=== PATIENT | female | born 1955 | race Caucasian/White ===

== ENCOUNTER 2016-11-05 11:48 | Day surgery (SDC) | payer OTHER ==
[2016-11-05] VITALS (8 sets, daily range): BP systolic 116–146; BP diastolic 60–93; PULSE 60–75; RESP 9–20; O2SAT 93–98
[~2016-11-05] VITALS: Ht 162.6 cm; Wt 63.0 kg
[~2016-11-05 11:48] MED LIST: CeFAZolin 2 Gm/50 mL D5W IV Premix IV ONE; HYDR-4003 PO
[2016-11-05] MEDS ORDERED: Lidocaine PF 1% 30 mL Inj ONE (11:49)
[2016-11-05] MEDS ORDERED: Dexamethasone 4 mg/mL Inj ONE (11:49)
[2016-11-05] MEDS ORDERED: Ondansetron 2 mg/mL 2 mL Inj ONE (11:49)
[2016-11-05] MEDS ORDERED: Ketamine 10 mg/mL 20 mL Inj ONE (11:49)
[2016-11-05] MEDS ORDERED: HYDROmorphone 2 mg/mL Inj ONE (11:49)
[2016-11-05] MEDS ORDERED: Propofol 10,000 mCg/mL 20 mL Inj ONE (11:49)
[2016-11-05] MEDS ORDERED: Lactated Ringer's 1,000 ML IV ONE (12:45)
[2016-11-05] MEDS ORDERED: Bupivacaine-MPF 0.5% 30 mL Inj INFILTRATE ONE (14:11)
[2016-11-05] MEDS ORDERED: Lactated Ringer's 500 ML IV PRN (14:43)
[2016-11-05] MEDS ORDERED: Lactated Ringer's 1,000 ML IV SCH (14:43)
--- NOTE | 2016-11-05 14:43 | PCM.HPANE ---
Patient Data Surgeon Admitting Provider: Attending Provider:Donavan Edwards MD Primary Care Physician:Anjelica Neal ARNP Other Provider:Khanh Warner Anesthesia Reason for Visit Right Distal Radius Fracture Ht/WT & BMI Height (Feet): 5 Height (Inches): 4.00 Weight (Kilograms): 63.049 Body Mass Index 23.00 Allergies Coded Allergies: codeine (Verified Adverse Reaction, Intermediate, Nausea, 11/05/16) Past Anesthesia History Anesthesia History: Denies:: Anesthesia Reactions, Malignant Hyperthermia Diabetes History Hx Diabetes?: No MRSA MRSA: No Medications Hypertension Medication: No Home Meds Incl Beta Gurjit: No Reported Medications Hydrocodone-Acetaminophen 5-325 mg 1 Each Tablet1 Tablet PO Q4H PRN For Pain Ref 0 11/01/16 History History of ENT Problems?: No Other HEENT Pertinent History: S/P WISDOM TEETH EXTRACTIONS Hx of Heart Problems?: No Cardiovascular History: Denies:: Heart Murmur Hypertension Hx of Respiratory Problem?: No Respiratory History: Denies:: Use of C-PAP Machine Hx Neurologic Problems?: No Hx of GI Problems?: No Hx of Problems?: No Female Hx: Denies:: Currently Skin History: Denies:: History Skin Disorders? Pressure Ulcers Hx Musculoskeletal Problems?: Yes Musculoskeletal History: Positive for:: Musculoskeletal Trauma (FALL ON ICE- RT DISTAL RADIUS FX=CURRENT PROBLEM S/P CLAVICLE RPR) Denies:: Osteoarthritis (OSTEOPENIA) Hx of Psycho/Social Problems?: No Hx Surgeries?: Yes (CLAVICLE RPR) Hx Any Other Health Problems?: Yes Other History: Denies:: Cancer Endocrine Disease Hospitalization Thyroid Disease History Blood Transfusions: Denies:: Blood Transfusions Hx Diabetes: No Hx Alcohol Use: YesAlcoholic Drinks Per Day: 1-2/DAYHx Substance Use: NoHave You Smoked inLast 12 mo: No Stop/Bang S-Snoring: Do You Snore Loudly: No T-Tired: feel tired, fatigued: No O-Obsered: Observed not breath: No P-Blood Pressure: treated: No B- Body Mass Index > 35 kg/m2: No A- Age over 50: Yes N- Neck Large Circumference: No G- Gender Male: No JANNA Total Score: 1 JANNA Risk Assessment: Low Risk, <3 Yes Risk Assessment Category Category 1A: Patient has history of documented sleep apnea, and HAS NOT received any narcotic, sedative or anesthesia administration during this stay. Category 1B: Patient has history of documented sleep apnea, and HAS received any narcotic , sedative or anesthesia administration during this stay Category 2: Patient has SUSPECTED Obstructive Sleep Apnea, and HAS received any narcotic , sedative or anesthesia administration during this stay. Category 3: Patient has SUSPECTED Obstructive Sleep Apnea and HAS NOT received narcotic, sedative or anesthesia administration during this stay. Category 4: Outpatient in Procedural Areas with known sleep apnea or who screen positive for High Risk via the STOP/BANG questionnaire. Exam Exam Vital Signs Vital Signs Date Time Temp Pulse Resp B/P Pulse Ox O2 Delivery O2 Flow Rate FiO2 11/05/16 12:25 36.6 60 14 146/93 96 Room Air General Appearance: Alert, Oriented X3 HEENT/AIRWAY: MP 1 Lungs: Clear to Auscultation Heart: Exam Unremarkable Meds/Labs/Diagnostics Admission Meds Current Medications Cefazolin Sodium/ Dextrose 2 gm/ Premix 50 ml @ 100 mls/hr PREOP ONCE IV Last administered on 11/05/16 13:42; Start 11/05/16 at 06:00; Stop 11/05/16 at 06: 29; Status DC Lactated Ringer's (Lr) 1,000 ml @ ud STK-MED ONCE IV Last administered on 12:45; Start 11/05/16 at 12:45; Stop 11/05/16 at 12:46; Status DC Bupivacaine HCl (Sensorcaine-MPF 0.5% Inj) 30 ml STK-MED ONCE INFILTRATE Last administered on 11/05/16 14:11; Start 11/05/16 at 14:11; Stop 11/05/16 at 14:13; Status DC Plan Impression Patient chart reviewed, patient interviewed and anesthestic plan with risks, benefits, and alternatives discussed, and informed consent obtained. NPO Status: clears to 1000 Vivek Seals MD Nov 05, 2016 14:43
[2016-11-05] MEDS ORDERED: Phenylephrine 10,000 mCg/mL Inj IVPUSH PRN (14:45)
[2016-11-05] MEDS ORDERED: EPHEDrine Sulfate 50 mg/mL Inj IVPUSH PRN (14:45)
[2016-11-05] MEDS ORDERED: HYDROmorphone 1 mg/mL Inj IVPUSH PRN (14:45)
[2016-11-05] MEDS ORDERED: Ondansetron 2 mg/mL 2 mL Inj IVPUSH PRN (14:45)
[2016-11-05] MEDS ORDERED: fentaNYL-PF 50 mCg/mL 2 mL Inj IVPUSH PRN (14:45)
[2016-11-05] MEDS ORDERED: MetoCLOpramide 5 mg/mL 2 mL Inj IVPUSH PRN (14:45)
[2016-11-05] MEDS ORDERED: Dexamethasone 4 mg/mL Inj IVPUSH PRN (14:45)
[2016-11-05] MEDS ORDERED: HYDROcodone-APAP 5-325 mg Tablet PO PRN (15:30)
--- NOTE | 2016-11-05 15:34 | PCM.ORTHOB ---
Immediate Operative Note Date of Service: Nov 05, 2016 Pre Operative Diagnosis Right distal radius and ulnar styloid fractures Post Operative Diagnosis Same Procedure Right distal radius open reduction and internal fixation Surgeon Surgeon: Donavan Edwards MD Assistants: Edward Gaona PA-C Findings Right wrist 3 part, comminuted intra-articular distal radius fracture moderately displaced but satisfactorily reduced open and associated small ulnar styloid avulsion fracture satisfactorily indirectly reduced with closed reduction maneuver. Unstable fracture satisfactorily reduced and stabilized with a Synthes right deltoid narrow 2.4 mm periarticular volar 4-hole locking plate. Intraoperative fluoroscopic views confirmed satisfactory reduction and fixation of the fracture without any intra-articular or dorsal cortical penetration from our placed hardware. Grafts, Implants: Implants-See Implant Record Complications There were no periprocedural complications identified. Condition Stable Anesthetic Administered: GA Drains: None Catheters: None Output, Estimated Blood Loss: 3 Blood Admin during surgery: No Surgical Cast or Splint: Short Arm Splint Surgical Specimen Removed: No Surgical Specimen sent to Path: No Post Operative Plan The patient will refrain from any strenuous or weightbearing right upper extremity activities for the next 6 weeks. The patient will return to the orthopedic clinic in 2 weeks' time for splint removal, suture removal and repeat x-rays of her right wrist and placement in a removable cock-up splint to allow for early wrist and hand range of motion. Additional Information Tourniquet time 78 minutes Donavan Edwards MD Nov 05, 2016 15:34
--- NOTE | 2016-11-05 15:44 | PCM.ORTHOP ---
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 Patient sustained a closed, isolated right wrist injury. Physical exam, radiographs and CT scan of the patient's right wrist reveal a displaced, comminuted, unstable intra-articular distal radius fracture and ulnar styloid fracture. The patient presents today for definitive management via open reduction and internal fixation with a volar distal radial locking plate. The skilled assistance of a physician's esl instructional assistant, Edward Gaona PA-C, was necessary for the successful completion of this case. The PA was essential for the proper positioning, manipulation of instruments, proper exposure, manipulation of tissues and wound closure. Findings Right wrist 3 part, comminuted intra-articular distal radius fracture moderately displaced but satisfactorily reduced open and associated small ulnar styloid avulsion fracture satisfactorily indirectly reduced with closed reduction maneuver. Unstable fracture satisfactorily reduced and stabilized with a Synthes right deltoid narrow 2.4 mm periarticular volar 4-hole locking plate. Intraoperative fluoroscopic views confirmed satisfactory reduction and fixation of the fracture without any intra-articular or dorsal cortical penetration from our placed hardware. Details of Procedure The patient was brought to the OR and given a general anesthetic. Patient was placed in the supine position and the right upper extremities abducted onto a hand table. A tourniquet was placed high about the right arm. Right upper extremity received a trauma scrub and then was prepped and draped in usual sterile fashion. We elevated and exsanguinated the limb and the tourniquet was inflated to 250 mmHg. A 10 cm longitudinal incision placed over the distal flexor carpi radialis tendon and gently curved volar just proximal to the volar radial flexor crease of the wrist was performed and taken down through subcutaneous tissues. Care was taken to avoid injury to the radial artery as soft tissues were gently retracted radial with that. The flexor carpi radialis and more medial flexor tendons were retracted ulnar. The flexor pollicis longus and pronator quadratus were then elevated subperiosteal fashion off the distal radial radius to the level of the radial styloid where the exposure was taken ulnar along the watershed line to expose the volar surface of the distal radius from just proximal to the articular surface to the metaphyseal diaphyseal junction. An open reduction maneuver was performed to realign intra- articular and extra-articular fragments after soft tissues and fracture hematoma were cleared evacuated from the fracture site. We then placed a 4 hole proximal 6 hole distal Synthes delta periarticular volar locking plate along the distal volar surface of the radius and provisionally secured it with smooth K wires. Intraoperative fluoroscopic views confirm satisfactory reduction of the distal radius and ulnar styloid fractures and placement of our plate. We then secured the plate to the distal radius with 6 x 2.4 mm locking screws and proximally with 4 2.7 mm bicortical screws. Final fluoroscopic views confirmed satisfactory reduction and fixation of the fracture without any intra-articular or dorsal cortical penetration of our placed hardware. The wound was thoroughly irrigated. We repaired the pronator quadratus over the volar radial locking plate with running 3-0 Vicryl suture. Subcutaneous tissues were closed with interrupted 3-0 Vicryl suture. 3-0 Prolene was used in a running subcuticular fashion to close the skin. 20 mL of 0.5% Marcaine was instilled into the wound. Wound was dressed with Xeroform and dry gauze dressings. The patient was placed into a well-padded volar splint and taken back to PACU in stable and satisfactory condition. There were no complications. Patient tolerated the procedure well. Grafts, Implants: Implants-See Implant Record Complications There were no periprocedural complications identified. Condition Stable Anesthetic Administered: GA Drains: None Catheters: None Output, Estimated Blood Loss: 3 Blood Admin during surgery: No Surgical Cast or Splint: Short Arm Splint Surgical Specimen Removed: No Specimen sent to Pathology: No Post Operative Plan The patient will refrain from any strenuous or weightbearing right upper extremity activities for the next 6 weeks. The patient will return to the orthopedic clinic in 2 weeks' time for splint removal, suture removal and repeat x-rays of her right wrist and placement in a removable cock-up splint to allow for early wrist and hand range of motion. copies to: Anjelica Neal ARNP; Donavan Edwards MD, Michael G.E MD Nov 05, 2016 15:44
--- NOTE | 2016-11-05 16:46 | PCM.ANEP1 ---
Post Anesthesia Phase 1 PACU Phase 1 Assessment Date of Service: Nov 05, 2016 Vital Signs Vital Signs Date Time Temp Pulse Resp B/P Pulse Ox O2 Delivery O2 Flow Rate FiO2 11/05/16 15:55 36.4 68 14 116/78 98 Room Air 11/05/16 15:53 37.2 72 20 130/60 96 Room Air 11/05/16 15:50 69 19 137/91 95 Room Air 11/05/16 15:40 71 9 128/85 96 Room Air 11/05/16 15:30 75 15 116/85 96 Room Air 11/05/16 15:27 36.2 75 15 135/83 93 Room Air 11/05/16 12:25 36.6 60 14 146/93 96 Room Air Anesthetic Administered: GA Level of Alertness: Awake, talking Pain: No Nausea or Vomiting: No Oxygen Delivery: Room Air Lungs: Clear to Auscultation Vivek Seals MD Nov 05, 2016 16:46
--- NOTE | 2016-11-05 16:47 | PCM.ANEP2 ---
Post Anesthesia Evaluation ASA/CMS Post Anesthesia VS in Patient's Normal Range?: Yes Resp Stable; Airway Patent?: Yes CV Function & Hydration Stable: Yes Mental Status Recovered?: Yes Pain control Satisfactory?: Yes N/V Control Satisfactory?: Yes Vivek Seals MD Nov 05, 2016 16:47
--- NOTE | 2016-11-05 16:54 | DRSVH ---
PROCEDURE: X-RAY RIGHT WRIST COMPLETE, MINIMUM THREE VIEWS ([id number]) INDICATIONS: postop TECHNIQUE: 3 views of the wrist were acquired. COMPARISON: Outside Film, CR, XR WRIST 3VW RT, 10/27/2016, 12:09. FINDINGS: A cast is present, obscuring fine bony detail. Bones: Patient is status post ORIF of the distal radius. Alignment is anatomic. Scaphoid view: Not requested. Soft tissues: No suspicious soft tissue calcifications. IMPRESSION: ORIF of distal radius. Anatomic alignment. Dictated by: Angela Levine M.D. on 11/05/2016 at 16:52 Approved by: Angela Levine M.D. on 11/05/2016 at 16:52
== END 2016-11-05 23:59 | disposition home or self-care (01) ==
LOC: SAS 11:48
PROVIDERS: ATTEND Orthopaedic Surgery
DX: S52.501A Unspecified fracture of the lower end of right radius, initial encounter for closed fracture (principal); W00.0XXA Fall on same level due to ice and snow, initial encounter; Y92.017 Garden or yard in single-family (private) house as the place of occurrence of the external cause; M85.80 Other specified disorders of bone density and structure, unspecified site
CPT/HCPCS: 25609; 73110; J0690; J1100; J1170; J2405; J7120